=== PATIENT | male | born 1980 | race Caucasian/White ===

== ENCOUNTER 2016-11-15 01:06 | Emergency (ER) | payer OTHER ==
[2016-11-15 01:26] VITALS: BP 166/96; PULSE 97; TEMP 97.9; BMI 37.3
[2016-11-15] MEDS ORDERED: IBUPROFEN 400 MG TABLET (FP) PO ONE ×2 (01:35→01:37)
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
--- NOTE | 2016-11-15 01:56 | PDOC ---
*Physical Exam - Vital Signs Last Vital Signs Temp Pulse Resp BP Pulse Ox 97.9 F 97 H 20 166/96 97 11/15/16 01:16 11/15/16 01:16 11/15/16 01:16 11/15/16 01:16 11/15/16 01:16 ED Treatment Course - RADIOLOGY Radiology Studies Ordered: Category Date Time Status WRIST W/HAND-RIGHT* [RAD] Stat Radiology 11/15/16 01:33 Ordered - Medications Given in the ED: ED Medications Discontinued Medications Generic Name Dose Route Start Last Admin Trade Name Alia PRN Reason Stop Dose Admin Ibuprofen 800 mg 11/15/16 01:35 11/15/16 01:38 Motrin - PO 11/15/16 01:36 800 mg ONCE ONE Administration Medical Decision Making - Medical Decision Making 11/15/16 01:56 agree with care from MITESH Soares 11/15/16 04:16 patient x-ray shows no acute fracture of right hand. Patient advised to follow up with Ortho. Rx Percocet and Motrin prescribed *DC/Admit/Observation/Transfer Diagnosis at time of Disposition: Hand pain Qualifiers: Laterality: right Qualified Code(s): M79.641 - Pain in right hand Contusion of right hand including fingers Qualifiers: Encounter type: initial encounter Qualified Code(s): S60.221A - Contusion of right hand, initial encounter; S60.00XA - Contusion of unspecified finger without damage to nail, initial encounter - Discharge Dispostion Disposition: HOME Condition at time of disposition: Stable Admit: No - Referrals Referrals: Asad Vernon MD [Staff Physician] - - Patient Instructions Printed Discharge Instructions: DI for Contusion, DI for Hand Injury - Post Discharge Activity Work/School Note: Back to Work
[2016-11-15] MEDS ORDERED: OXYCODONE/APAP 5/325MG COMBO TABLET PO ONE (03:52)
[2016-11-15] MEDS ORDERED: OXYCODONE/APAP 5/325MG COMBO TABLET ONE (03:53)
== END 2016-11-15 04:20 | disposition home or self-care (01) ==
LOC: JER 01:06
DX: M79.641 Pain in right hand (principal); S60.221A Contusion of right hand, initial encounter; Y35.813A Legal intervention involving manhandling, suspect injured, initial encounter; Y93.89 Activity, other specified; Y92.9 Unspecified place or not applicable; Y99.0 Civilian activity done for income or pay
CPT/HCPCS: 73110-TC-RT; 73130-TC-RT; 99283-25

== ENCOUNTER 2017-04-18 02:59 | Emergency (ER) | payer OTHER ==
[2017-04-18 03:29] VITALS: BP 161/91; PULSE 106; TEMP 98.6; BMI 31.1
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
== END 2017-04-18 04:53 | disposition home or self-care (01) ==
LOC: JER 02:59
PROC: 2W3RX1Z Immobilization of Left Lower Leg using Splint (ICD-10-PCS; principal; 2017-04-18)
DX: M25.562 Pain in left knee (principal); Z87.891 Personal history of nicotine dependence; Y35.891A Legal intervention involving other specified means, law enforcement official injured, initial encounter; Y93.9 Activity, unspecified; Y92.9 Unspecified place or not applicable
CPT/HCPCS: 73560-TC-LT; 99281-25

== ENCOUNTER 2018-04-05 02:03 | Emergency (ER) | payer OTHER, BC ==
[2018-04-05 02:12] VITALS: BP 120/78; PULSE 91; TEMP 97.6; BMI 35.2
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
== END 2018-04-05 02:54 | disposition home or self-care (01) ==
LOC: JER 02:03
DX: Z77.21 Contact with and (suspected) exposure to potentially hazardous body fluids (principal); Y35.811A Legal intervention involving manhandling, law enforcement official injured, initial encounter; Y93.89 Activity, other specified; Y92.89 Other specified places as the place of occurrence of the external cause; Y99.0 Civilian activity done for income or pay
CPT/HCPCS: 99281-25

== ENCOUNTER 2020-03-03 04:13 | Emergency (ER) | payer OTHER, BC ==
[2020-03-03 04:30] VITALS: BP 145/98; PULSE 94; TEMP 97.9; BMI 38.0
== END 2020-03-03 05:31 | disposition home or self-care (01) ==
LOC: FER 04:13
DX: S83.91XA Sprain of unspecified site of right knee, initial encounter (principal); W19.XXXA Unspecified fall, initial encounter
CPT/HCPCS: 73560-TC-RT-FY; 99283-25

== ENCOUNTER 2020-08-22 03:54 | Emergency (ER) | payer OTHER ==
[2020-08-22 04:01] VITALS: BP 130/96; PULSE 110; TEMP 98.2; BMI 38.0
== END 2020-08-22 04:13 | disposition home or self-care (01) ==
LOC: FER 03:54
DX: S86.912A Strain of unspecified muscle(s) and tendon(s) at lower leg level, left leg, initial encounter (principal)
CPT/HCPCS: 99283-25

== ENCOUNTER 2022-07-21 02:01 | Emergency (ER) | payer OTHER ==
[2022-07-21 02:08] VITALS: BP 125/90; PULSE 110; RESP 18; TEMP 97.6; BMI 36.6
== END 2022-07-21 04:50 | disposition home or self-care (01) ==
LOC: JER 02:01
DX: S49.91XA Unspecified injury of right shoulder and upper arm, initial encounter (principal); Y99.8 Other external cause status
CPT/HCPCS: 73070-TC-RT-FY; 73090-TC-RT-FY; 73130-TC-RT-FY; 99284-25